=== PATIENT | male | born 1985 | race Caucasian/White ===

== ENCOUNTER 2021-02-23 09:32 | Emergency (ER) | payer OTHER ==
[2021-02-23] MEDS ORDERED: CLEOCIN HCL300 MG PO (10:53)
[2021-02-23] MEDS ORDERED: NAPROSYN500 MG PO (10:53)
== END 2021-02-23 11:20 | disposition home or self-care (01) ==
LOC: ER1 09:32
DX: K04.7 Periapical abscess without sinus (principal); Z88.0 Allergy status to penicillin; Z79.899 Other long term (current) drug therapy
CPT/HCPCS: 96372; 99283; J1885

== ENCOUNTER 2021-11-04 21:17 | Emergency (ER) | payer OTHER ==
[~2021-11-04 21:17] MED LIST: CLEOCIN HCL300 MG PO; NAPROSYN500 MG PO
[2021-11-04 23:13] LABS: HEMOGLOBIN 14.6 gm/dl (14.0-17.5); RED BLOOD COUNT 4.92 M/UL (4.20-5.50)
[2021-11-04 23:56] LABS: BUN/CREATININE RATIO 16 (0-10)
[2021-11-05] MEDS ORDERED: LODINE CAP 300300 MG PO (02:00)
[2021-11-05] MEDS ORDERED: ZOFRAN ODT 4 MG4 MG PO (02:00)
[2021-11-05] MEDS ORDERED: PROVENTIL HFA6.7 GM INH (02:00)
[2021-11-05] MEDS ORDERED: BENZONATATE100 MG PO (02:00)
== END 2021-11-05 09:07 | disposition home or self-care (01) ==
LOC: ER1 21:17
PROVIDERS: Physician Assistant
DX: U07.1 COVID-19 (principal); Z88.0 Allergy status to penicillin
CPT/HCPCS: 0240U; 80053; 81001; 83605; 83735; 85025; 85652; 86140; 87081; 87086; 87880; 99283